=== PATIENT | male | born 1975 | race Caucasian/White ===

== ENCOUNTER 2016-08-06 19:08 | Emergency (ER) | payer SELFPAY ==
[~2016-08-06 19:08] MED LIST: DEXA5SUS20 LEFT EYE
--- NOTE | 2016-08-06 20:10 | NUR ---
PATIENT LEFT WITHOUT BEING SEEN BY DR. lopez. NO FURTHER CARE PROVIDED FOR PATIENT.
== END 2016-08-06 20:10 | disposition left against medical advice (07) ==
LOC: MED 19:08
DX: Z02.89 Encounter for other administrative examinations (principal); Z53.21 Procedure and treatment not carried out due to patient leaving prior to being seen by health care provider

== ENCOUNTER 2021-05-14 12:21 | Emergency (ER) | payer SELFPAY ==
[~2021-05-14] VITALS: Ht 170.2 cm; Wt 68.9 kg
[2021-05-14 12:32] VITALS: BP 124/70
[2021-05-14 14:23] VITALS: BP 124/70
--- NOTE | 2021-05-14 14:23 | NUR ---
left without discharge paperwork
== END 2021-05-14 14:23 | disposition home or self-care (01) ==
LOC: MED 12:21
DX: J02.9 Acute pharyngitis, unspecified (principal); Z79.899 Other long term (current) drug therapy
CPT/HCPCS: 99281